=== PATIENT | male | born 1940 | race Two or more races ===

== ENCOUNTER 2024-06-15 12:25 | Emergency (ER) | payer MEDICARE ==
[~2024-06-15] VITALS: Ht 162.6 cm; Wt 81.8 kg
[2024-06-15 12:30] VITALS: TEMP 97.9
[2024-06-15] MEDS: BACITRACIN 0.9 GM PACKET OINTMENT TP ONE (14:22)
[2024-06-15] MEDS: IBUPROFEN 600 MG TABLET PO ONE (14:22)
[2024-06-15] MEDS: ACETAMINOPHEN/CODEINE 300-30 MG TABLET PO ONE (14:23)
[2024-06-15] MEDS: LIDOCAINE 1% 10 ML VIAL SQ ONE (14:23)
[2024-06-15] MEDS: PERTUSS(ACELL),DIPH,TET/PF 0.5 ML SYRINGE [ADULT] IM. ONE (14:24)
[2024-06-15 17:30] VITALS: BP 158/65; PULSE 69; RESP 17; O2SAT 98
[2024-06-15] MEDS ORDERED: ACET-2080 PO (19:30)
[2024-06-15] MEDS ORDERED: BACI28.410 TP (19:31)
[2024-06-15] MEDS ORDERED: IBUP-1554 PO (19:31)
== END 2024-06-15 20:00 | disposition home or self-care (01) ==
LOC: EMS 12:25
DX: S01.81XA Laceration without foreign body of other part of head, initial encounter (principal); S63.642A Sprain of metacarpophalangeal joint of left thumb, initial encounter; S63.641A Sprain of metacarpophalangeal joint of right thumb, initial encounter; S80.01XA Contusion of right knee, initial encounter; Z87.891 Personal history of nicotine dependence; W19.XXXA Unspecified fall, initial encounter; Y93.89 Activity, other specified; Y92.89 Other specified places as the place of occurrence of the external cause; Y99.8 Other external cause status
CPT/HCPCS: 99284; 73130 ×2; 73562; 90715; 90471; 12013; J3490

== ENCOUNTER 2024-06-19 13:59 | Emergency (ER) | payer MEDICARE ==
[~2024-06-19] VITALS: Ht 165.1 cm; Wt 66.4 kg
[~2024-06-19 13:59] MED LIST: ACET-2080 PO; BACI28.410 TP; IBUP-1554 PO
[2024-06-19 14:04] VITALS: BP 144/72; PULSE 73; RESP 16; TEMP 98.3; O2SAT 98
== END 2024-06-19 14:32 | disposition home or self-care (01) ==
LOC: EMS 13:59
DX: S01.81XD Laceration without foreign body of other part of head, subsequent encounter (principal); Z87.891 Personal history of nicotine dependence; X58.XXXD Exposure to other specified factors, subsequent encounter
CPT/HCPCS: 99281; Z7502

== ENCOUNTER → 2024-06-23 | Emergency (ER) | payer MEDICARE ==
[~2024-06-23] VITALS: Ht 162.6 cm; Wt 72.7 kg
[2024-06-23 11:31] VITALS: BP 117/61; PULSE 70; RESP 18; TEMP 97.8; O2SAT 98
== END | disposition home or self-care (01) ==
LOC: EMS 11:26
DX: S01.81XD Laceration without foreign body of other part of head, subsequent encounter (principal); Z48.02 Encounter for removal of sutures; X58.XXXD Exposure to other specified factors, subsequent encounter
CPT/HCPCS: 99282; Z7502